=== PATIENT | male | born 1970 | race Caucasian/White ===

== ENCOUNTER 2019-10-03 05:11 | Day surgery (SDC) | payer OTHER ==
[~2019-10-03] VITALS: Ht 175.3 cm; Wt 77.7 kg
[~2019-10-03 05:11] MED LIST: [UNRECOGNIZED DRUG - OTHER] PO
[2019-10-03] MEDS ORDERED: LACTATED RINGERS 1,000 ML IV SCH (06:00)
[2019-10-03] MEDS ORDERED: LIDOCAINE-MPF 1%, 2ML INFIL ONE (06:00)
[2019-10-03 06:05] VITALS: BP 148/93
[2019-10-03] MEDS ORDERED: LIDOCAINE/PF 1%-EPI 1:200K, 30 ML ONE (06:12)
[2019-10-03] MEDS ORDERED: ROPIvacaine/PF 0.5%, 30 ML ONE (06:12)
[2019-10-03] MEDS ORDERED: MIDAZOLAM 1 MG/ML, 2ML ONE (06:23)
[2019-10-03] MEDS ORDERED: FENTANYL PF 250 MCG/5ML ONE (06:24)
[2019-10-03] MEDS ORDERED: PHENYLEPHRINE 10 MG/ML ONE (06:28)
[2019-10-03] MEDS ORDERED: ROPIvacaine/PF 0.2%, 20 ML ONE (06:29)
[2019-10-03] MEDS ORDERED: PROPOFOL 10 MG/ML, 20ML ONE (06:30)
[2019-10-03] MEDS ORDERED: ROCURONIUM 10MG/ML,5ML ONE (06:30)
[2019-10-03] MEDS ORDERED: GABAPENTIN 300 MG CAPSULE PO ONE (06:30)
[2019-10-03] MEDS ORDERED: GLYCOPYRROLATE 0.2MG/1ML, 5ML ONE (06:30)
[2019-10-03] MEDS ORDERED: ACETAMINOPHEN 500 MG TABLET PO ONE (06:30)
[2019-10-03] MEDS ORDERED: CEFAZOLIN 1,000 MG ONE (06:30)
[2019-10-03] MEDS ORDERED: NEOSTIGMINE 1 MG/ML, 10ML ONE (06:30)
[2019-10-03] MEDS ORDERED: MORPHINE SULFATE 4 MG/ML, 1ML IVPush PRN (07:00)
[2019-10-03] MEDS ORDERED: MEPERIDINE/PF 25MG/ML,1ML IVPush PRN (07:00)
[2019-10-03] MEDS ORDERED: ONDANSETRON 2MG/ML, 2ML IV PRN (07:00)
[2019-10-03] MEDS ORDERED: LABETALOL 5MG/ML, 20ML IV PRN (07:00)
[2019-10-03] MEDS ORDERED: FENTANYL PF 100 MCG/2ML IV PRN (07:00)
[2019-10-03] MEDS ORDERED: hydrALAzine 20 MG/ML, 1ML IV PRN (07:00)
[2019-10-03] MEDS ORDERED: OXYcodone 5 MG/5 ML ORAL.SOL UDC PO PRN (07:00)
[2019-10-03] MEDS ORDERED: HYDROmorphone 1 MG/ML, 1ML INJ ONE (08:35)
[2019-10-03] MEDS ORDERED: OXYcodone 5 MG/5 ML ORAL.SOL UDC ONE (08:36)
[2019-10-03] MEDS: HYDROmorphone 2 MG/ML, 1ML IVPush PRN ×2 (08:45→09:00)
[2019-10-03] MEDS ORDERED: hydrALAzine 20 MG/ML, 1ML ONE (09:12)
== END 2019-10-03 11:05 | disposition home or self-care (01) ==
LOC: OUT 05:11
PROVIDERS: ATTEND Orthopaedic Surgery
DX: S83.511A Sprain of anterior cruciate ligament of right knee, initial encounter (principal); S83.241A Other tear of medial meniscus, current injury, right knee, initial encounter; S83.271A Complex tear of lateral meniscus, current injury, right knee, initial encounter; M22.41 Chondromalacia patellae, right knee; X58.XXXA Exposure to other specified factors, initial encounter; Y93.23 Activity, snow (alpine) (downhill) skiing, snowboarding, sledding, tobogganing and snow tubing; Y92.89 Other specified places as the place of occurrence of the external cause; Y99.8 Other external cause status
CPT/HCPCS: 29881; 29882; 29888; 64447; C1713; J0360; J0690; J1170; J2250; J2370; J2704; J2710; J2795; J3010; J3490; J7120